=== PATIENT | male | born 1955 | race Caucasian/White ===

== ENCOUNTER → 2024-07-09 15:01 | Outpatient (REF) | payer MEDICARE, SELFPAY | LOC: HWRAD 15:01 | PROVIDERS: ATTENDING PHYSICIAN Surgery | DX: K40.90 Unilateral inguinal hernia, without obstruction or gangrene, not specified as recurrent (principal) | CPT/HCPCS: 74176 ==

== ENCOUNTER → 2024-08-24 09:49 | Outpatient (REF) | payer MEDICARE, SELFPAY ==
[2024-08-24 10:34] LABS: Hematocrit 34.3 % (39.0-52.0); Hemoglobin 11.8 g/dL (13.0-18.0); Mean Corp Hgb Conc. 34.4 g/dL (33.0-37.0); Mean Corpuscular Hgb 37.7 pg (27.0-31.0); Mean Corpuscular Volume 109.6 fL (80.0-94.0); Mean Platelet Volume 11.6 fL (7.4-10.4); Platelet Count 133 10^3/uL (130-400); Red Blood Cell Count 3.13 10^6/uL (4.70-6.10); Red Cell Dist. Width 13.5 % (11.5-14.5); White Blood Cell Count 5.1 10^3/uL (4.8-10.8)
[2024-08-24 11:43] LABS: ALT (SGPT) 232 U/L (0-50); AST (SGOT) 218 U/L (17-59); Albumin 2.9 g/dl (3.5-5.0); Alkaline Phosphatase 103 U/L (38-126); Blood Urea Nitrogen 20 mg/dl (9-20); Calcium 8.6 mg/dl (8.4-10.2); Carbon Dioxide 27 mmol/L (22-30); Chloride 106 mmol/L (98-107); Glucose 93 mg/dl (70-99); Potassium 4.7 mmol/L (3.5-5.1); Sodium 140 mmol/L (135-145); Total Bilirubin 1.3 mg/dl (0.2-1.3); Total Protein 6.6 g/dl (6.3-8.2); eGFR > 60.00
== END ==
LOC: SDSPAT 09:49
PROVIDERS: ATTENDING PHYSICIAN Surgery
DX: Z01.818 Encounter for other preprocedural examination (principal)
CPT/HCPCS: 36415; 71046; 80053; 85027

== ENCOUNTER 2024-09-08 06:35 | Day surgery (SDC) | payer MEDICARE, SELFPAY ==
[2024-08-24 12:57] VITALS: BMI 28.9
--- NOTE | 2024-09-01 16:01 | PTCARENOTE ---
Angela in Dr Winston's office made aware of AST 218 and ALT 232.
[2024-09-08] VITALS (9 sets, daily range): BP systolic 141–166; BP diastolic 65–83; BMI 28.9
--- NOTE | 2024-09-08 08:17 | W.SUR.PREOP ---
Pre-Operative Surgical Note
-
I have examined this patient prior to the performance of the scheduled procedure.
The patient's condition is unchanged from the time of the current History and
Physical and the patient is able to undergo the scheduled procedure.
--- NOTE | 2024-09-08 08:18 | HP.FOC2 ---
Focused History & Physical
Chief Complaint
HPI:
Chief Complaint: Recurrent right inguinal hernia, umbilical hernia
HPI / Indication for Planned Procedure: this is a 69-year-old male with a history of EtOH abuse and compensated liver cirrhosis. His most recent LFTs are within normal limits and his platelets are normal he has never had ascites or been tapped.
Relevant Past Medical History: COPD or Pulmonary Disease, Coronary Artery Disease, Hypertension and Other (Cirrhosis)
Relevant Social History: Negative
Relevant Family History: Negative
Relevant Past Surgical History: Positive for (Bilateral open inguinal hernias)
Review of Systems
Review of Pertinent Systems: All Systems Negative
Medication
See Medication form for detailed medications: Yes
Medication List (including Herbals & OTC):
apixaban 5 mg tablet (Eliquis) 5 mg PO BID 09/07/24
ibuprofen 200 mg tablet 400 mg PO Q6H PRN pain 09/07/24
metoprolol tartrate 25 mg tablet 25 mg PO BID 09/07/24
Medications Reviewed: Yes
Allergies and Reactions
Patient has Allergies: Yes
Noted Allergies and Reactions:
Allergy/AdvReac Type Severity Reaction Status Date / Time
No Known Allergies Allergy Unverified 09/07/24 08:04
Pertinent Physical Exam
All Other Systems: Negative
Head/Neck: Normal
Diagnosis / Assessment
This is a 69-year-old male with an umbilical hernia as well as a recurrent right inguinal hernia
Plan / Procedure
Will plan for a robotic right inguinal hernia repair with mesh, possible left as well as an open umbilical hernia repair possibly with mesh.
Anesthesia/Sedation to be done by Anesthesia Provider: Yes
[2024-09-08] MEDS: TYLENOL 1000 MG PO (08:25)
--- NOTE | 2024-09-08 12:11 | W.IMMPOSTOP ---
Surgical Immed Post Op Note
-
Primary Surgeon: Leopoldo Winston MD
Assisting Surgeon: None
Pre-op Diagnosis: Recurrent right inguinal hernia, umbilical hernia
Post-op Diagnosis: Recurrent right inguinal hernia, umbilical hernia, cirrhosis with ascites
Procedure Performed:
1. Robotic recurrent right inguinal hernia repair with mesh
2. Removal of foreign body/mesh plug
3. Open primary umbilical hernia repair
4. Paracentesis
Anesthesia Type: General
Specimen / Cultures:
1. Plug
2. Ascites
Estimated Blood Loss: 23 cc
Complications: None
Operative Findings: Recurrent right inguinal hernia with both indirect and femoral components. Large mesh plug noted in the direct space which was partially removed/debulked. The hernia sac was fairly tethered so we performed and abandon the sac
technique after confirming preservation of the spermatic cord and vessels. After obtaining the critical view of the MPO, the space was reinforced with a large right mid weight Bard 3D max mesh.
Cirrhotic appearing liver with about 250 cc of clear appearing ascites which was suctioned out. A sample of this was sent for culture. The umbilical defect measured roughly 1 cm and contained preperitoneal fat which was also debulked. After
developing the preperitoneal space the defect was closed with 3 interrupted 0 Surgilon [id number] sutures.
--- NOTE | 2024-09-08 12:25 | OR.RPT ---
Operative Report
Operative Report
Patient Name: Dread Stauffer
: 1955
Date of Operation: 09/08/2024
Preoperative Diagnosis: Recurrent right inguinal hernia, umbilical hernia
Postoperative Diagnosis: Recurrent right inguinal hernia, umbilical hernia, cirrhosis with ascites
Procedure(s):
1. Robotic recurrent right inguinal hernia repair with mesh
2. Removal of foreign body/mesh plug
3. Open primary umbilical hernia repair
4. Paracentesis
Surgeon(s):
Dr. Winston
Property And Supply Officer(s):
MAXIMO Estrada
Anesthesia: General
Estimated Blood Loss: 23 cc
Urine Output: None
Drains/Lines/Implants: Large 3D Max Bard mid weight uncoated polypropylene mesh
Specimens:
1. Mesh plug
2. Ascites
Indication for surgery: The patient has a history of bilateral open inguinal hernias and EtOH cirrhosis that was compensated, no significant fluid on preoperative imaging and no history of paracentesis or ascites in the past. Who presented to my
office with right groin pain and noted on exam and on subsequent imaging to have a recurrent right inguinal hernia. No left inguinal hernia was appreciated. The patient also had mildly symptomatic umbilical hernia. Following review of therapeutic
options they have elected to undergo a minimally invasive repair.
Operative Findings: Recurrent right inguinal hernia with both indirect and femoral components. Large mesh plug noted in the direct space which was partially removed/debulked. The hernia sac was fairly tethered so we performed and abandon the sac
technique after confirming preservation of the spermatic cord and vessels. After obtaining the critical view of the MPO, the space was reinforced with a large right mid weight Bard 3D max mesh.
Cirrhotic appearing liver with about 250 cc of clear appearing ascites which was suctioned out. A sample of this was sent for culture. The umbilical defect measured roughly 1 cm and contained preperitoneal fat which was also debulked. After
developing the preperitoneal space the defect was closed with 3 interrupted 0 Surgilon [id number] sutures.
Details of the operation:
The patient was brought to the Operating Room and placed in the supine position with the arms tucked. IV antibiotics were infused and Venodyne stockings placed. Following uneventful induction of general endotracheal anesthesia, an orogastric tube
were placed. The abdomen was prepped and draped in the usual sterile fashion. An infraumbilical curvilinear incision was made and dissection carried down to the fascia. The hernia sac was circumferentially dissected and then carefully peeled off
of the overlying umbilical stalk. The hernia sac was opened and noted to have preperitoneal fat. This was debulked to the level of the fascia using 0 Vicryl ties. The defect measured roughly 1 cm. We cannulated this opening with an 8 mm robotic
port and pneumoperitoneum to 15 mmHg was obtained without difficulty. We then placed two additional 8 mm ports in the left upper and right upper quadrants. We then docked the robot with a Prograsper in the left hand port and monopolar scissors in
the right. A recurrent right inguinal hernia could be readily identified. The liver also appeared fairly cirrhotic and there was ascitic fluid around the liver and in the pelvis this was suctioned up and some of this was sent as a sample for
culture but it did not appear infected. We then began by creating a flap at the level of the ASIS laterally working our way medially to the medial umbilical fold. There was a large mesh plug in the direct space which we had to circumferentially
dissect taking care to peel it off of the bladder medially and peritoneal flap inferiorly. The peritoneal flap appeared to be densely adherent to the overlying mesh and so we performed and abandon the sac technique after carefully ensuring that
the spermatic cord and testicular vessels were well-preserved. The hernia sac was then peeled back to accommodate our mesh. Medially we identified the midline pubis as well as Addy's ligament and ensured to dissect 2 cm below the pubic rim over
the bladder. After exposure of the entire myopectineal orifice we identified and reduced: A small sized indirect inguinal hernia, no direct inguinal hernia, but a large mesh plug which was debulked to the level of Hesselbach's triangle, a medium
sized femoral hernia containing preperitoneal fat which was reduced, and no cord lipoma
We then fixated a large 3D max mesh with a 2-0 Vicryl stitch at coopers medially and superior laterally. The flap was then closed with a running 2-0 barbed monocryl suture ensuring that the tail was cut flush with the medial fat pad so that no
barbs were exposed. During the closure of the flap an Angiocath was inserted and 20 cc of quarter percent Marcaine was instilled. The area in the flap cavity was then evacuated of air confirming that the mesh was flush and there were no folds.
There were multiple small rents in the peritoneum that were closed with 2-0 Vicryl. All needles and instruments were then removed and the robot was undocked. A 4 x 4 Ray-Jurgen which had been used to assist with hemostasis earlier, was also removed,
as well as the mesh plug. The abdomen was then desufflated, and pneumoperitoneum evacuated. We then turned our attention to the umbilical defect which again remained small at about 1 cm. This was closed with 3 0 Surgilon sutures in a
[id number] fashion. The umbilical stalk was then tacked down to the fascia using a 3-0 Vicryl suture. All skin sites were then closed with 4-0 Monocryl followed by Dermabond. An umbilical suction dressing was placed. Counts were correct and
overall, the patient tolerated the procedure well and was taken to the Recovery Room postoperatively in stable condition.
I was the attending physician and performed the procedure with assistance of the COAL WEIGHER above. I was present for all portions of the case
Leopoldo Winston MD
[2024-09-08] MEDS: SUBLIMAZE 50 MCG IV (12:35)
== END 2024-09-08 13:42 | disposition home or self-care (01) ==
LOC: SDS 06:35
PROVIDERS: ATTENDING PHYSICIAN Surgery
DX: K40.91 Unilateral inguinal hernia, without obstruction or gangrene, recurrent (principal); K42.9 Umbilical hernia without obstruction or gangrene; K70.31 Alcoholic cirrhosis of liver with ascites
CPT/HCPCS: 49651; 49591; 49082; 88300; 87015; 87070; 87205; C1781